=== PATIENT | female | born 1985 | race Two or more races ===

== ENCOUNTER 2016-11-11 18:54 | Inpatient (IN) | payer MEDICAID ==
[~2016-11-11] VITALS: Ht 165.1 cm; Wt 91.2 kg
[2016-11-11 19:06] VITALS: Ht 165.1 cm; Wt 91.2 kg
[2016-11-11 19:07] VITALS: BP 127/74; PULSE 93; RESP 19
[2016-11-11] MEDS ORDERED: LACTATED RINGER'S 1,000 ML IV PRN (20:16)
[2016-11-11] MEDS ORDERED: LACTATED RINGER'S 1,000 ML IV SCH (20:16)
[2016-11-11] MEDS ORDERED: OXYTOCIN 30 UNITS/LR 500 ML IV PRN (20:30)
[2016-11-11] MEDS ORDERED: LIDOCAINE 1% (MPF) 30 ML INJ INJ PRN (20:30)
[2016-11-11] MEDS ORDERED: IBUPROFEN 600 MG TAB PO PRN (20:30)
[2016-11-11] MEDS ORDERED: METHYLERGONOVINE 0.2 MG INJ IM PRN (20:30)
[2016-11-11] MEDS ORDERED: MISOPROSTOL 200 MCG TAB PR PRN (20:30)
[2016-11-11] MEDS ORDERED: CARBOPROST 250 MCG INJ IM PRN (20:30)
[2016-11-11] MEDS ORDERED: OXYTOCIN 30 UNITS/LR 500 ML IV SCH ×2 (20:30)
[2016-11-11] MEDS ORDERED: BUTORPHANOL 2 MG INJ IV PRN (20:30)
--- NOTE | 2016-11-11 20:51 | RADRPT ---
PROCEDURE: US OB. CLINICAL INDICATION: Contractions. Uncertain size and dates. TECHNIQUE: Multiple sonographic images of the uterus were obtained. The images were revi ewed on a PACS workstation. COMPARISON: No prior studies are available for comparison. FINDINGS: There is a single live intrauterine gestation. heart rate is 148 beats per minute. Measurements were made in order to determine age. The results are as follows: BPD = 9.71 cm. HC = 34.59 cm. AC = 35.89 cm. FL = 7.66 cm. Estimated weight is 3862 +/- 579 grams. LMP growth percentile is 64 %. Menstrual age by ultrasound dates is 39 weeks 5 days. The estimated date of delivery is 11/13/1970. Position is cephalic and placenta is anterior fundal grade II. There is no evidence for an abruption or placenta previa. IMPRESSION: 1. Single live intrauterine gestation of 39 weeks 5 days menstrual age by ultrasound dates. 2. The estimated date of delivery is 11/13/2016. RPTAT: QQ .Steve Blackburn MD, Date Time Electronically viewed and signed by .Steve Blackburn MD, on 11/11/2016 20:51 .R/
--- NOTE | 2016-11-11 21:04 | RADRPT ---
PROCEDURE: US biophysical profile. CLINICAL INDICATION: Decreased motion. Contractions. TECHNIQUE: Multiple sonographic images of the uterus were obtained. The images were revi ewed on a PACS workstation. COMPARISON: No prior studies are available for comparison. FINDINGS: There is a single live intrauterine gestation. heart rate is 131 beats per minute. The position is cephalic. The placenta is anterior fundal grade II with no abruption or previa. The BAYRON is 7.7 cm. (Normal = 5-20 cm.) Breathing Movement: 2 Gross Body Movement: 2 Tone: 2 Qualitative Amniotic Fluid Volume: 2 TOTAL: 8 IMPRESSION: 1. The biophysical score is 8/8. RPTAT: QQ .Steve Blackburn MD, MD Date Time Electronically viewed and signed by .Steve Blackburn MD, on 11/11/2016 21:03 .R/
[2016-11-11 21:55] LABS: ADD UMIC YES; BASOPHILS % 0.3 % (0.0-2.0); EOSINOPHILS % 0.2 % (0.0-7.0); HEMATOCRIT 37.2 % (37.0-47.0); HEMOGLOBIN 12.8 g/dl (12.0-16.0); LYMPHOCYTES # 2.6 10^3/ul (0.8-2.9); LYMPHOCYTES % 18.1 % (15.0-51.0); MEAN CORPUSCULAR HEMOGLOBIN 30.8 pg (29.0-33.0); MEAN CORPUSCULAR HGB CONC 34.4 g/dl (32.0-37.0); MEAN CORPUSCULAR VOLUME 89.6 fl (82.0-101.0); MEAN PLATELET VOLUME 8.8 fl (7.4-10.4); MONOCYTE # 0.9 10^3/ul (0.3-0.9); MONOCYTES % 6.1 % (0.0-11.0); NEUTROPHIL # 10.8 10^3/ul (1.6-7.5); NEUTROPHILS % 75.3 % (39.0-77.0); PLATELET COUNT 249 10^3/UL (140-440); RED BLOOD COUNT 4.16 10^6/ul (4.20-5.40); RED CELL DISTRIBUTION WIDTH 13.8 % (11.5-14.5); UNCORRECTED WBC 14.3 10^3/ul (4.8-10.8); URINE BILIRUBIN (Dip) NEGATIVE (NEGATIVE); URINE BLOOD (Dip) 2+ (NEGATIVE); URINE COLOR LT. YELLOW (YELLOW); URINE GLUCOSE (Dip) NEGATIVE (NEGATIVE); URINE KETONES (Dip) NEGATIVE (NEGATIVE); URINE LEUKOCYTE ESTERASE (Dip) NEGATIVE (NEGATIVE); URINE NITRITE (Dip) NEGATIVE (NEGATIVE); URINE TOTAL PROTEIN (Dip) NEGATIVE (NEGATIVE); URINE UROBILINOGEN (Dip) 0.2 E.U./dL (0.1-1.0); WHITE BLOOD COUNT 14.3 10^3/ul (4.8-10.8)
[2016-11-11 21:59] LABS: ALBUMIN 3.7 g/dl (3.3-4.9); INR 0.91; PROTIME 12.2 Sec (12.2-14.2)
[2016-11-11 22:00] LABS: PARTIAL THROMBOPLASTIN TIME 28.2 Sec (25.0-35.0); POTASSIUM 3.9 mmol/L (3.5-5.1)
[2016-11-11 22:02] LABS: ALBUMIN/GLOBULIN RATIO 0.97; BILIRUBIN,INDIRECT 0.3 mg/dl (0-1.1); BILIRUBIN,TOTAL 0.3 mg/dl (0.2-1.3); CREATININE 0.53 mg/dl (0.44-1.00); TOTAL PROTEIN 7.5 g/dl (6.1-8.1); URIC ACID 4.7 mg/dl (3.1-7.9)
[2016-11-11 22:03] LABS: CALCIUM 9.4 mg/dl (8.4-10.2)
[2016-11-11 22:05] LABS: CONDITION 1
[2016-11-11 22:07] LABS: BACTERIA,URINE FEW
--- NOTE | 2016-11-11 22:57 | HP ---
Date/Time of Note Date/Time of Note DATE: 11/11/16 TIME: 22:50 OB - History Hx of Present Free Text/Dictation 31 years old with IUP at 40 weeks and 2 with care at [facility] presented in active labor and was noted to be 4 cm dilated and had regular contractions. records were available.she had history of macrosomia in both prior pregnancies. Feels this baby is smaller than the others, GBS negative. Antepartum course was otherwise non complicated. Current EFW: 3800 by us. Estimated Due Date: Nov 08, 2016 : 3 Para: 2 Spontaneous : 0 Therapeutic : 0 Care: Good Care Obstetrical Complications: None Other Concerns: History of macrosomia in prior pregnancies. Denies any prior history of GDM in current and prior pregnancies. History of URI and anemia in current Past Family/Social History * Past Medical, Surgical, Family and Obstetric Histories reviewed from chart. Blood Type: O+ Rubella: immune RPR/VDRL: Negative GBS Status: Negative HBsAG: Negative OB Admission Exam Vital Signs Vital Signs Vital Signs Date Time Temp Pulse Resp B/P Pulse Ox O2 Delivery O2 Flow Rate FiO2 11/11/16 19:07 98.4 93 19 127/74 99 Room Air Physical Exam HEENT: WNL Lungs: Clear Abdomen: WNL Extremities: Normal Cervical Dilatation: 4cm Effacement: Other (80%) Station: -1 Membranes: Intact Heart Rate: 120's Accelerations: Accelerations Present Decelerations: No Decelerations Varibility: Moderate Contractions on Admission: < 5 Minutes Apart Intensity: Moderate Last 72 hours Lab Results CBC & BMP 11/11/16 20:10 Liver Function Test 11/11/16 20:10 Alanine Aminotransferase (ALT/SGPT) 13 Albumin 3.7 Alkaline Phosphatase 136 H Aspartate Amino Transf (AST/SGOT) 16 Direct Bilirubin 0.00 Total Protein 7.5 OB Assessment/Plan Reason for admission: active labor Other Assessment: Post date GBS negative Plan: Expectant Management Other plan: Admit Anticipate EFW 3862 grams History of prior macrosomia without shoulder dystocia Declined Epidural LYNNE ADEN MD Nov 11, 2016 22:56
--- NOTE | 2016-11-11 23:05 | PN ---
Date/Time of Note Date/Time of Note DATE: 11/11/16 TIME: 23:03 OB Subjective Subjective Subjective I was called by RN due to difficulty keeping the fetus on external monitor. Attended. Patient has regular contractions. Declined epidural. OB Objective Objective Objective SVE: 7-8/ 80%, -1 AROM done, clear fluid noted FSE placed. FHT: Cat 1 OB Assessment/Plan Reason for admission: active labor Other Assessment: Post date First stage GBS negative AROM done, FSE placed. FHT: Cat 1 Plan: Expectant Management Other plan: Anticipate LYNNE ARGUELLES MD Nov 11, 2016 23:05
--- NOTE | 2016-11-11 23:46 | LDN ---
Date/Time of Note Date/Time of Note DATE: 11/11/16 TIME: 23:44 Delivery Summary I was called to attend the delivery, when the patient had significant urge to push. Placenta Delivered: Spontaneously Meconium: none Perineum intact?: No Perineal laceration: 2 Perineal laceration repair: second degree perineovaginal laceration repaired with 2-0 chromic Anesthesia type: None Estimated blood loss: 400 Sponge & Needle done & correct: Yes All needle counts correct: Yes Any foreign bodies felt in the: No Problems: Delivery Information Sex Infant Sex: male Apgars 1 Minute: 9 5 Minute: 9 Suctioning Nose & mouth suctioned at iris: No Delee suction performed: Yes Umbilical Cord Umbilical cord with: 3 Vessels Cord presentations: no nuchal cord Cord Blood was obtained: Yes LYNNE ADEN MD Nov 11, 2016 23:46
[2016-11-11] MEDS: LACTATED RINGER'S 1,000 ML IV* SCH (23:47)
[2016-11-12] MEDS ORDERED: CARBOPROST 250 MCG INJ IM PRN
[2016-11-12] MEDS ORDERED: MISOPROSTOL 200 MCG TAB PR PRN
[2016-11-12] MEDS ORDERED: ACETAMINOPHEN/CODEINE #3 TAB PO PRN
[2016-11-12] MEDS ORDERED: ONDANSETRON 4 MG INJ IV PRN
[2016-11-12] MEDS ORDERED: OXYTOCIN 30 UNITS/LR 500 ML IV PRN
[2016-11-12] MEDS ORDERED: morphine 2 MG INJ IV PRN
[2016-11-12] MEDS ORDERED: DIPHENHYDRAMINE 25 MG CAP PO PRN
[2016-11-12] MEDS ORDERED: ZOLPIDEM 5 MG TAB PO PRN
[2016-11-12] MEDS ORDERED: LANOLIN 7 GM TUBE TOP PRN
[2016-11-12] MEDS ORDERED: METHYLERGONOVINE 0.2 MG INJ ONE (00:21)
[2016-11-12 01:55] VITALS: BP 109/54; PULSE 78; RESP 20
[2016-11-12] MEDS: IBUPROFEN 600 MG TAB PO SCH ×5 (02:32→23:59)
[2016-11-12] MEDS: SENNA/DOCUSATE NA (8.6MG/50MG) TAB PO SCH ×3 (02:33→20:39)
[2016-11-12 04:20] VITALS: BP 101/52; RESP 17
[2016-11-12] MEDS: LACTATED RINGER'S 1,000 ML IV* SCH ×2 (04:20→20:39)
[2016-11-12] MEDS: WITCH HAZEL/GLYCERIN PAD PR PRN (06:21)
--- NOTE | 2016-11-12 06:25 | OPRPT ---
Intraop Record Datetime Report Generated by CPN: 11/12/2016 06:25 Datetime: 11/11/2016 19:08 Drug Allergies/Reactions: No Known Drug Allergies (11/11/2016) Datetime: 11/11/2016 19:05 Drug Allergies/Reactions: NONE Food Allergies/Reactions: NONE Latex Allergies/Reactions: No Latex Allergies
--- NOTE | 2016-11-12 06:25 | DELSUM ---
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 Babies in Womb: 1 Attempted: No Labor Anesthesia: None LABOR INFORMATION Reason for Induction: Not Applicable Onset of Labor: 11/11/2016 17:00 Complete Dilatation: 11/11/2016 23:07 Oxytocin: N/A Group B Beta Strep: Negative Steroids Given: None Reason Steroids Not Administered: Not Applicable MEMBRANES Membranes Rupture Method: Artificial Membranes Rupture Method: Artificial Rupture of Membranes: 11/11/2016 22:43 Rupture of Membranes: 11/11/2016 22:43 Length of Rupture (hr): 0.48 Length of Rupture (hr): 0.48 Amniotic Fluid Color: Clear Amniotic Fluid Color: Clear Amniotic Fluid Amount: Small Amniotic Fluid Amount: Small Amniotic Fluid Odor: Normal STAGES OF LABOR Stage 1 hr: 6 Stage 1 min: 7 Stage 2 hr: 0 Stage 2 min: 5 Stage 3 hr: 0 Stage 3 min: 14 Total Time in Labor hr: 6 Total Time in Labor min: 26 VAGINAL DELIVERY Episiotomy: None Laceration Extension: Second Degree Laceration Type: Perineal; Vaginal Laceration Repair: Yes Initial Vag Sponge Count: 10 Final Vag Sponge Count: 10 Initial Vag Sharps Count: 1+2 Final Vag Sharps Count: 3 Sponge Count Correct: Yes Sharps Count Correct: Yes Count Comment: 10 RAYTECH 2 SHARPS ADDED BABY A INFORMATION Infant Delivery Date/Time: 11/11/2016 23:12 Method of Delivery: Vaginal Born in Route : No : N/A Forceps: N/A Vacuum Extraction: N/A Shoulder Dystocia : N/A SHOULDER DYSTOCIA BABY A Infant Delivery Date/Time: 11/11/2016 23:12 PRESENTATION/POSITION BABY A Presentation: Cephalic Cephalic Presentation: Vertex Vertex Position: Left Occipital Anterior Breech Presentation: N/A PLACENTA INFORMATION BABY A Placenta Delivery Time : 11/11/2016 23:26 Placenta Method of Delivery: Spontaneous Placenta Status: Delivered SCORES BABY A Heart Rate 1 min: >100 bpm Resp Effort 1 min: Good Cry Reflex Irritability 1 min: Cough/Sneeze/Pulls Away Muscle Tone 1 min: Active Motion Color 1 min: Body [place], Extremit Blue Resuscitation Effort 1 min: Tactile Stimulation SCORE 1 MIN: 9 Heart Rate 5 min: >100 bpm Resp Effort 5 min: Good Cry Reflex Irritability 5 min: Cough/Sneeze/Pulls Away Muscle Tone 5 min: Active Motion Color 5 min: Body [place], Extremit Blue Resuscitation Effort 5 min: Tactile Stimulation SCORE 5 MIN: 9 INFORMATION BABY A Gestational Age at Delivery: 40.3 Gestational Status: Full Term- 39- 40.6 Weeks Outcome : Liveborn Condition : Stable Infant Sex: Male IDENTIFICATION/MEDS BABY A ID Band Number: [id number] ID Band Location: Right Arm; Left Leg Sensor Applied: Yes Sensor Number: [id number] Sensor Location : Cord Clamp Vitamin K Given : Not Given Erythromycin Given: Not Given WEIGHT/LENGTH BABY A Infant Birthweight (gm): 3685 Infant Weight (lb): 8 Weight (oz): 2 Infant Length (in): 20.00 Length (cm): 50.80 CORD INFORMATION BABY A No. Cord Vessels: 3 Nuchal Cord : N/A Cord Blood Taken: Yes Infant Suction: Mouth; Nose ASSESSMENT BABY A Complications: None Physical Findings at Delivery: Within Normal Limits Respirations: Appears Normal Landscape Supervisor/ALS Called : No Care By: Joseline JOHNSON Transferred To: Remains with Mother
[2016-11-12 06:40] LABS: HEMATOCRIT 30.6 % (37.0-47.0); HEMOGLOBIN 10.4 g/dl (12.0-16.0)
[2016-11-12 08:00] VITALS: BP 104/53; PULSE 95; RESP 19
--- NOTE | 2016-11-12 09:45 | PN ---
Date/Time of Note Date/Time of Note DATE: 11/12/16 TIME: 09:44 OB Subjective Subjective Subjective day 1 Vital sign a stable afebrile abdomen soft uterus firm lochia normal extremity normal ambulation recommended Laboratory Tests Test 11/11/16 20:10 11/12/16 05:46 Activated Partial Thromboplast Time 28.2Sec Alanine Aminotransferase (ALT/SGPT) 13IU/L Albumin 3.7g/dl Albumin/Globulin Ratio 0.97 Alkaline Phosphatase 136IU/L Anion Gap 17 Aspartate Amino Transf (AST/SGOT) 16IU/L Basophils # 0.010^3/ul Basophils % 0.3% Blood Urea Nitrogen 9mg/dl Calcium Level 9.4mg/dl Carbon Dioxide Level 20mmol/L Chloride Level 107mmol/L Creatinine 0.53mg/dl Direct Bilirubin 0.00mg/dl Eosinophils # 0.010^3/ul Eosinophils % 0.2% Globulin 3.80g/dl Glucose Level 84mg/dl Hematocrit 37.2% 30.6% Hemoglobin 12.8g/dl 10.4g/dl INR International Normalized Ratio 0.91 Indirect Bilirubin 0.3mg/dl Lymphocytes # 2.610^3/ul Lymphocytes % 18.1% Mean Corpuscular Hemoglobin 30.8pg Mean Corpuscular Hemoglobin Concent 34.4g/dl Mean Corpuscular Volume 89.6fl Mean Platelet Volume 8.8fl Monocytes # 0.910^3/ul Monocytes % 6.1% Neutrophils # 10.810^3/ul Neutrophils % 75.3% Nucleated Red Blood Cells # 0.010^3/ul Nucleated Red Blood Cells % 0.0/100WBC Platelet Count 92729^3/UL Potassium Level 3.9mmol/L Prothrombin Time 12.2Sec Prothrombin Time Ratio 1.0 Red Blood Count 4.1610^6/ul Red Cell Distribution Width 13.8% Sodium Level 140mmol/L Total Bilirubin 0.3mg/dl Total Protein 7.5g/dl Uric Acid 4.7mg/dl Urine Bacteria FEW Urine Bilirubin NEGATIVE Urine Clarity CLEAR Urine Color LT. YELLOW Urine Epithelial Cells FEW Urine Glucose NEGATIVE% Urine Hemoglobin 2+ Urine Ketones NEGATIVE Urine Leukocyte Esterase NEGATIVE Urine Microscopic RBC 5-10/HPF Urine Microscopic WBC 0-2/HPF Urine Nitrite NEGATIVE Urine Specific [place] 1.010 Urine Total Protein NEGATIVE Urine Urobilinogen 0.2 E.U./dL Urine pH 6.5 White Blood Count 14.310^3/ul Current Medications Medications (Trade) Dose Ordered Sig/Beny Route PRN Reason Start Time Stop Time Status Last Admin Dose Admin Lactated Ringer's (Lr) 1,000 ml @ 125 mls/hr Q8H IV 11/11/16 20:16 11/11/16 23:50 DC 11/11/16 20:27 Butorphanol Tartrate (Stadol) 1 mg Q2H PRN IV PAIN 11/11/16 20:30 11/11/16 23:50 DC Lidocaine 30 ml 30 ml ONCE PRN INJ EPISIOTOMY/TEARING 11/11/16 20:30 11/11/16 23:50 DC Oxytocin/Lactated Ringer's 500 ml @ 125 mls/hr ONCE -MAY REPEAT X1 IV 11/11/16 20:30 11/11/16 23:50 DC 11/11/16 23:49 Oxytocin/Lactated Ringer's 500 ml @ 125 mls/hr ONCE IV 11/11/16 20:30 11/11/16 23:50 DC 11/11/16 23:18 Ibuprofen 600 mg 600 mg ONCE PRN PO Mild Pain (Pain Score 1-3) 11/11/16 20:30 11/11/16 23:50 DC 11/11/16 23:49 Lactated Ringer's 1,000 ml @ 2,000 mls/hr Q30M PRN IV PRE-EPIDURAL BOLUS 11/11/16 20:16 11/11/16 23:50 DC Oxytocin/Lactated Ringer's 500 ml @ 0 mls/hr ONCE PRN IV For Hemorrhage Management 11/11/16 20:30 11/11/16 23:50 DC Methylergonovine Maleate (Methergine) 0.2 mg ONCE PRN IM VAGINAL BLEEDING 11/11/16 20:30 11/11/16 23:50 DC Carboprost Tromethamine (Hemabate) 250 mcg ONCE PRN IM VAGINAL BLEEDING 11/11/16 20:30 11/11/16 23:50 DC Misoprostol 1000 mcg 1,000 mcg ONCE PRN [place] VAGINAL BLEEDING 11/11/16 20:30 11/11/16 23:50 DC Lactated Ringer's (Lr) 1,000 ml @ 125 mls/hr Q8H IV* 11/11/16 23:47 11/12/16 04:20 Morphine Sulfate (morphine) 1 mg Q3 PRN IV PAIN LEVEL 6-10 11/12/16 00:00 Ibuprofen (Motrin) 600 mg Q6 PO 11/12/16 00:00 11/12/16 05:52 Acetaminophen/ Codeine Phosphate (Tylenol No.3) 1 tab Q4H PRN PO PAIN LEVEL 1-5 11/12/16 00:00 Ondansetron HCl (Zofran Inj) 4 mg Q6H PRN IV NAUSEA AND/OR VOMITING 11/12/16 00:00 Diphenhydramine HCl (Benadryl) 25 mg Q6H PRN PO PRURITUS 11/12/16 00:00 Zolpidem Tartrate (Ambien) 5 mg QHS PRN PO INSOMNIA 11/12/16 00:00 Senna/Docusate Sodium (Senokot-S) 1 tab BID PO 11/12/16 00:00 Witch [place]/ Glycerin (Tucks Pads) 1 pad BEDSIDE MEDICATION PRN [place] HEMORRHOID/EPISIOTMY PAIN 11/12/16 00:00 11/12/16 06:21 Lanolin (Xro-A-Vvavky) 1 applic BEDSIDE MEDICATION PRN TOP BEDSIDE FOR BHUPENDRA TO NIPPLES 11/12/16 00:00 11/12/16 06:21 Measles/Mumps/ Rubella Vaccine Live (Mmr Ii Vaccine) 0.5 ml ONCE ONCE SC* 11/13/16 09:00 11/13/16 09:01 Diphtheria/ Tetanus/Acell Pertussis (Adacel) 0.5 ml ONCE ONCE IM* 11/13/16 09:00 11/13/16 09:01 Varicella Virus Vaccine Live 1350 unit 1,350 unit ONCE ONCE SC* 11/13/16 09:00 11/13/16 09:01 Oxytocin/Lactated Ringer's 500 ml @ 0 mls/hr ONCE PRN IV For Hemorrhage Management 11/12/16 00:00 11/12/16 00:27 Carboprost Tromethamine (Hemabate) 250 mcg ONCE PRN IM VAGINAL BLEEDING 11/12/16 00:00 Misoprostol (Cytotec) 1,000 mcg ONCE PRN [place] VAGINAL BLEEDING 11/12/16 00:00 11/12/16 00:13 Methylergonovine Maleate (Methergine) 0.2 mg STK-MED ONCE .ROUTE 11/12/16 00:21 11/12/16 00:22 TANISHA OLIVA MD Nov 12, 2016 09:45
[2016-11-12 16:00] VITALS: BP_SYST 108; BP_SYST 112; BP_DIAS 58; BP_DIAS 76; PULSE 75; PULSE 86; RESP 19; RESP 20
[2016-11-12 20:15] VITALS: BP 113/68; PULSE 95; RESP 17
[2016-11-13 04:00] VITALS: BP 109/64; PULSE 70; RESP 17
[2016-11-13] MEDS: IBUPROFEN 600 MG TAB PO SCH ×2 (05:34→11:58)
[2016-11-13 08:00] VITALS: BP 106/57; PULSE 76; RESP 18
[2016-11-13] MEDS ORDERED: DIPHTH/TET/ACEL PERTUSS (ADULT) 0.5 ML VIAL IM* ONE (09:00)
[2016-11-13] MEDS ORDERED: MEASLES,MUMPS,RUBELLA VACCINE INJ SC* ONE (09:00)
[2016-11-13] MEDS ORDERED: VARICELLA VACCINE LIVE/PF 1,350 UNIT/0.5 ML ML SC* ONE (09:00)
[2016-11-13] MEDS: SENNA/DOCUSATE NA (8.6MG/50MG) TAB PO SCH (09:00)
[2016-11-13] MEDS: WITCH HAZEL/GLYCERIN PAD PR PRN (09:03)
--- NOTE | 2016-11-13 13:51 | PD.PPDC ---
MEDICAL MALPRACTICE PARALEGAL Discharge Instruction Condition Patient Condition: Good Diet Diet: Resume Regular Diet Activity/Restrictions Restrictions: No Exercising No Lifting No Driving No Sexual Activity Nothing in the Vagina No Varina No Tampons, douche Follow-up Follow-up with Physician: 2, Week/Weeks Return to clinic for MANUFACTURING LABORER Instructions: Fever greater than 101 Excessive Vaginal Bleeding Unable to tolerate diet OB Instructions: Blurried Vision Headache TANISHA PEREZ MD Nov 13, 2016 13:51
--- NOTE | 2016-11-13 13:54 | DS ---
Date/Time of Note Date/Time of Note DATE: 11/13/16 TIME: 13:52 Obstetrical Discharge Record Final Diagnosis Final Diagnosis: Term delivered (date to post) Condition on Discharge Physical Assessment Last Vitals: Day 2 post normal vaginal delivery Vital sign is stable afebrile abdomen soft uterus firm lochia normal extremity normal Voiding: Yes Bowel Movement: Yes Breast: Soft, non-tender, Filling Fundus: Firm Calf Tenderness: No Patient Condition: Good TANISHA PEREZ MD Nov 13, 2016 13:54
== END 2016-11-13 15:20 | disposition home or self-care (01) | DRG 775 ==
LOC: OBT 18:54 → L-D 18:57 → OBT 19:01 → L-D 19:02 → PP1 11-12 01:55
PROVIDERS: ADMIT Obstetrics & Gynecology; ATTEND Obstetrics & Gynecology
PROC: 10E0XZZ Delivery of Products of Conception, External Approach (ICD-10-PCS; principal; 2016-11-11)
PROC: 0KQM0ZZ Repair Perineum Muscle, Open Approach (ICD-10-PCS; 2016-11-11)
PROC: 10907ZC Drainage of Amniotic Fluid, Therapeutic from Products of Conception, Via Natural or Artificial Opening (ICD-10-PCS; 2016-11-11)
DX: O48.0 Post-term pregnancy (principal); O70.1 Second degree perineal laceration during delivery; Z3A.40 40 weeks gestation of pregnancy; Z37.0 Single live birth
CPT/HCPCS: 76815; 76818; 80053; 81001; 81003; 84560; 85014; 85018; 85025; 85305; 85610; 85730; 86592; 86900; 86901; 87086; 90715; 90716; A4310; G0463; J2210; J2590; J7120